=== PATIENT | female | born 1965 | race Caucasian/White ===

== ENCOUNTER → 2023-10-04 11:56 | Outpatient (BNVA) | payer SELFPAY | PROVIDERS: PCP Clinical Nurse Specialist Adult Health; Visit Provider Clinical Nurse Specialist Adult Health | DX: D50.9 Iron deficiency anemia, unspecified (principal); K62.89 Other specified diseases of anus and rectum; Z00.00 Encounter for general adult medical examination without abnormal findings | CPT/HCPCS: 80053; 83036; 85025 ==

== ENCOUNTER → 2023-10-13 10:36 | Outpatient (BNVA) | payer SELFPAY | PROVIDERS: PCP Clinical Nurse Specialist Adult Health; Visit Provider Clinical Nurse Specialist Adult Health | DX: D50.9 Iron deficiency anemia, unspecified (principal); K62.89 Other specified diseases of anus and rectum | CPT/HCPCS: 82270 ==

== ENCOUNTER 2025-10-27 17:35 | Observation (INO) | payer BC, SELFPAY ==
[2025-10-27] VITALS (9 sets, daily range): BP systolic 121–177; BP diastolic 57–135; PULSE 105–116; RESP 10–26; TEMP 36.4; O2SAT 92–100; BMI 28.8; BMI 30.3
--- NOTE | 2025-10-27 18:20 | CTR_ITS ---
PROCEDURE INFORMATION: Exam: CT Abdomen And Pelvis With Contrast Exam date and time: 10/27/2025 6:38 PM Age: 60 years old Clinical indication: Prior surgery; Surgery date: 6+ months; Surgery type: Colostomy. Csection. EMS arrival for lower gi bleed with lethargy. History of rectosigmoid carcinoma. ; Additional info: Abd pain, gi bleeding, HX of rectal cancer TECHNIQUE: Imaging protocol: Computed tomography of the abdomen and pelvis with contrast. Radiation optimization: All CT scans at this facility use at least one of these dose optimization techniques: automated exposure control; mA and/or kV adjustment per patient size (includes targeted exams where dose is matched to clinical indication); or iterative reconstruction. Contrast material: OMNI 350; Contrast volume: 80 ml; Contrast route: INTRAVENOUS (IV); COMPARISON: No relevant prior studies available. RADIATION DOSE METRICS: Total DLP (mGy-cm): 679.19 FINDINGS: Lungs: Hypoattenuating foci, possible metastases, in the right lower lobe lung parenchyma is incompletely characterized on this examination. Given history of rectosigmoid carcinoma, consider CT chest for further evaluation as clinically appropriate. Pleural spaces: Large bilateral pleural effusions. Liver: Hepatic metastases measuring up to 4.6 x 4.3 cm in the right lobe of the liver and 2.4 x 3.6 cm in the medial left lobe of the liver other smaller hypoattenuating hepatic foci which are incompletely characterized on this examination. Gallbladder and biliary ducts: Normal. No calcified stones. No ductal dilation. Pancreas: Normal. No ductal dilation. Spleen: Normal. No splenomegaly. Adrenal glands: Normal. No mass. Kidneys and ureters: Bilateral caliectasis, no hydroureter on either side. Bilateral renal cysts incompletely characterized on this examination. Stomach and bowel: Colonic mass in the patient's left lower quadrant ostomy measuring 5.2 x 3.7 cm with normal caliber of the visualized large bowel loops. Normal caliber of the small bowel loops. Appendix: No evidence of appendicitis. Intraperitoneal space: Fluid-filled mass with septations and rim calcifications measuring 11 cm AP x 6.5 cm transverse by 11.2 cm craniocaudal along the left peritoneal sidewall, possible abscess and/or metastatic deposit. Vasculature: Unremarkable. No abdominal aortic aneurysm. Lymph nodes: Scattered subcentimeter retroperitoneal lymph nodes. Urinary bladder: Unremarkable as visualized. Reproductive: Hypoattenuating uterine masses with heterogeneous echogenicity and foci of subcentimeter air within the fluid components suggestive of abscess the largest measuring 12.0 x 9.0 cm. Complex cysts in the right adnexa measures 3.3 x 5.1 cm series 9, image 53. Bones/joints: Multilevel degenerative changes of the thoracolumbar spine. No acute osseous abnormality. Soft tissues: Peroneal abscess measures 3.4 x 2.3 cm series 9, image 73 extending into the gluteal crease with indurated cutaneous tissues. Other findings: Calcifications in the pelvis. CT/CT abdomen pelvis w con* [id number] IMPRESSION: 1. Hypoattenuating foci, possible metastases, in the right lower lobe lung parenchyma is incompletely characterized on this examination. Given history of rectosigmoid carcinoma, consider CT chest for further evaluation as clinically appropriate. 2. Large bilateral pleural effusions. 3. Hepatic metastases measuring up to 4.6 x 4.3 cm in the right lobe of the liver and 2.4 x 3.6 cm in the medial left lobe of the liver other smaller hypoattenuating hepatic foci which are incompletely characterized on this examination. 4. Hypoattenuating uterine masses with heterogeneous echogenicity and foci of subcentimeter air within the fluid components suggestive of abscess the largest measuring 12.0 x 9.0 cm. 5. Fluid-filled mass with septations and rim calcifications measuring 11 cm AP x 6.5 cm transverse by 11.2 cm craniocaudal along the left peritoneal sidewall, possible abscess and/or metastatic deposit. 6. Colonic mass in the patient's left lower quadrant ostomy measuring 5.2 x 3.7 cm with normal caliber of the visualized large bowel loops. 7. Peroneal abscess measures 3.4 x 2.3 cm series 9, image 73 extending into the gluteal crease with indurated cutaneous tissues. COMMENTS: Consistent with the [employer]'s Incidental Findings Committee white paper (J Am Elieser Radiol 2018): Any incidental renal lesion less than 1 cm or classified as too small to characterize, or any incidental cystic renal lesion characterized as simple-appearing, is likely benign. No follow-up imaging is recommended for these lesions per consensus recommendations based on imaging criteria.
[2025-10-27 18:29] LABS: Hematocrit 27.4 % (36-47); Hemoglobin 7.20 g/dL (11.27-16.99); Mean Corpuscular HGB Conc 26.3 g/dL (30-55); Mean Corpuscular Hemoglobin 21.8 pg (27-33); Mean Corpuscular Volume 83.0 fl (85-98); Nucleated Red Blood Cells % 0.4 %; Platelet Count 273 10^3/cmm (157-399); Red Blood Count 3.30 10^6/uL (3.85-5.65); White Blood Count 25.89 10^3/uL (3.29-11.43)
[2025-10-27] MEDS: iohexol 350 mg/mL 500 mL Btl (per mL) IV (18:46)
[2025-10-27 18:49] LABS: Alanine Aminotransferase < 5 U/L (0-33); Albumin Level 3.1 g/dL (3.5-5.2); Alkaline Phosphatase 115 U/L (35-105); Anion Gap 12.6 (5-19); Aspartate Amino Transferase 18 U/L (0-32); Blood Urea Nitrogen 26 mg/dL (8-23); Calcium 8.8 mg/dL (8.5-10.5); Carbon Dioxide 32 mmol/L (22-29); Chloride 99 mmol/L (98-107); Globulin 3.6 g/dL (1.3-4.6); Glucose 176 mg/dL (65-115); Osmolality Calculated 295 mOsm/kg (285-295); Potassium 5.6 mmol/L (3.5-5.1); Sodium 138 mmol/L (136-145); Total Protein 6.7 g/dL (6.6-8.7)
--- NOTE | 2025-10-27 18:53 | W.ED.GIBLEED ---
HPI - GI Bleed General: Chief complaint: GI Bleed Stated complaint: lethargy Time Seen by Provider: 10/27/25 17:41 History of Present Illness: Patient is a 60-year-old female with end-stage colon cancer who presents from home with GI bleeding. She is currently on hospice care. Patient reports abdominal pain but denies vomiting. Denies fever. Appears quite ill. History is otherwise difficult to obtain. Related Data Home Medications ?Medication ?Instructions ?Recorded ?Confirmed gabapentin 300 mg capsule 300 mg PO TID 01/13/24 05/03/25 pantoprazole 40 mg tablet,delayed 40 mg PO QDAY 05/03/25 05/03/25 release Previous Rx's ?Medication ?Instructions ?Recorded cholecalciferol (vitamin D3) 75 75 mcg PO BID #30 tabs 01/04/24 mcg (3,000 unit) tablet ferrous sulfate 325 mg (65 mg 325 mg PO DAILY #30 tabs 01/13/24 iron) tablet metformin 500 mg tablet 500 mg PO BIDWMEAL #60 tabs 05/03/25 propranolol 10 mg tablet 10 mg PO BID #60 tabs 05/03/25 Allergies Allergy/AdvReac Type Severity Reaction Status Date / Time Penicillins Allergy Unknown ADR-mild Verified 05/03/25 09:52 PFSH ED PFSH: Medical History Vitamin D deficiency Carcinoma of rectosigmoid (colon) Type 2 diabetes mellitus without complications Iron deficiency anemia Hyperglycemia Hx of bronchitis Uterine fibroid Surgical History Colostomy in place Nov 2023 Hx of section 1 child only Family History Denies family history of Colon cancer Clotting disorder Anesthesia complication Bleeding disorder Social History Smoking and tobacco/nicotine status: never used tobacco/nicotine Alcohol intake: current Alcohol intake frequency: holidays/special occasions only Substance/Drug Use: never Current occupation: work at [employer] Physical Exam Const: EXAM LIMITATIONS: altered mental status GENERAL APPEARANCE: cooperative, in distress, ill appearing and frail appearing ORIENTATION/CONSCIOUSNESS: Yes awake, Yes oriented to person and Yes oriented to place; not oriented to time HENMT: COMMON NORMALS: normocephalic, atraumatic and Normal external nose present HEAD & SCALP: normocephalic and atraumatic FACE & SINUS: face symmetric NOSE: Normal external nose present Eye: COMMON NORMALS: Equal, round and reactive pupils present and EOMs intact bilaterally CONJUNCTIVA: Yes conjunctival abnormal positive bilateral pallor PUPIL: Yes Equal, round and reactive pupils present Chest: CHEST: Yes Symmetrical chest wall rise Resp: COMMON NORMALS: clear to auscultation bilaterally EFFORT & INSPECTION: Yes decreased respiratory effort and Yes labored AUSCULTATION: clear to auscultation bilaterally Cardio: COMMON NORMALS: regular rhythm RATE: tachycardic RHYTHM: regular rhythm GI: PALPATION: Yes Firmness to palpation present (GI), Yes Tenderness to palpation present (GI) and Yes Guarding due to palpation present (GI) Neuro: SENSORIUM/ORIENTATION: Yes oriented to person, Yes oriented to place and No oriented to time Course Vital Signs: Vital signs: Vital Signs Temperature 97.5 F L 10/27/25 17:44 Pulse Rate 105 H 10/27/25 21:48 Respiratory Rate 17 10/27/25 22:25 Blood Pressure 127/68 10/27/25 21:48 Pulse Oximetry 98 10/27/25 21:48 Oxygen Delivery Me thod Nasal Cannula 10/27/25 22:16 Oxygen Flow Rate 5 10/27/25 18:38 MDM - GI Bleed Medical Decision Making Patient is tachycardic. She is hypertensive. She is significantly hypoxic, on 5 L of oxygen now. Saturations are 93 to 95%. Her hemoglobin is 7.2. White blood cell count is 26. Rectal exam reveals significant erosion into the vaginal wall. Bright red blood is leaking from what appears to be an anterior position, in the vagina. Colostomy bag is filled with stool, and does not appear bloody. Spoke with the patient and her daughter. She is a hospice patient. They want no drastic measures. CT reveals multiple metastases. Fluid-filled masses in the uterus, with likely abscess measuring 12 x 9 cm. Abscess in uterine wall, likely causing vaginal bleeding. Colonic mass in the left lower quadrant measuring 5.2 x 3-1/2 cm. No bowel obstruction. Peritoneal abscess is present also that is significant in size. Prognosis is dire in this patient. Patient and daughter are aware. They wish for admission, mainly for palliative care. Spoke with hospitalist. He is going to come to see the patient. After hospitalist discussion with the patient and the patient's daughter. She will be admitted for comfort measures. Lab Data 10/27/25 18:19 10/27/25 18:19 Radiology Impressions Abdomen/Pelvis CT 10/27/25 18:20 IMPRESSION: 1. Hypoattenuating foci, possible metastases, in the right lower lobe lung parenchyma is incompletely characterized on this examination. Given history of rectosigmoid carcinoma, consider CT chest for further evaluation as clinically appropriate. 2. Large bilateral pleural effusions. 3. Hepatic metastases measuring up to 4.6 x 4.3 cm in the right lobe of the liver and 2.4 x 3.6 cm in the medial left lobe of the liver other smaller hypoattenuating hepatic foci which are incompletely characterized on this examination. 4. Hypoattenuating uterine masses with heterogeneous echogenicity and foci of subcentimeter air within the fluid components suggestive of abscess the largest measuring 12.0 x 9.0 cm. 5. Fluid-filled mass with septations and rim calcifications measuring 11 cm AP x 6.5 cm transverse by 11.2 cm craniocaudal along the left peritoneal sidewall, possible abscess and/or metastatic deposit. 6. Colonic mass in the patient's left lower quadrant ostomy measuring 5.2 x 3.7 cm with normal caliber of the visualized large bowel loops. 7. Peroneal abscess measures 3.4 x 2.3 cm series 9, image 73 extending into the gluteal crease with indurated cutaneous tissues. COMMENTS: Consistent with the [employer]'s Incidental Findings Committee white paper (J Am Elieser Radiol 2018): Any incidental renal lesion less than 1 cm or classified as too small to characterize, or any incidental cystic renal lesion characterized as simple-appearing, is likely benign. No follow-up imaging is recommended for these lesions per consensus recommendations based on imaging criteria. Laboratory Results WBC 25.89 10^3/uL (3.29-11.43) H 10/27/25 18:19 RBC 3.30 10^6/uL (3.85-5.65) L 10/27/25 18:19 Hgb 7.20 g/dL (11.27-16.99) L 10/27/25 18:19 Hct 27.4 % (36-47) L 10/27/25 18:19 MCV 83.0 fl (85-98) L 10/27/25 18:19 MCH 21.8 pg (27-33) L 10/27/25 18:19 MCHC 26.3 g/dL (30-55) L 10/27/25 18:19 RDW 19.9 % (12.1-15.1) H 10/27/25 18:19 Plt Count 273 10^3/cmm (157-399) 10/27/25 18:19 MPV 10.6 fL (7.4-10.4) H 10/27/25 18:19 Neut % (Auto) 87.2 % 10/27/25 18:19 Lymph % (Auto) 5.0 % 10/27/25 18:19 [place] % (Auto) 5.0 % 10/27/25 18:19 Eos % (Auto) 0.1 % 10/27/25 18:19 Baso % (Auto) 0.2 % 10/27/25 18:19 Neut # (Auto) 22.58 10^3/uL (1.8-7.7) H 10/27/25 18:19 Lymph # (Auto) 1.3 10^3/uL (0.8-4.8) 10/27/25 18:19 [place] # (Auto) 1.3 10^3/uL (0.2-0.9) H 10/27/25 18:19 Eos # (Auto) 0.0 10^3/uL (0.0-0.8) 10/27/25 18:19 Baso # (Auto) 0.0 10^3/uL (0.0-0.1) 10/27/25 18:19 Nucleated RBC % (auto) 0.4 % 10/27/25 18:19 Nucleated RBCs # 0.1 /100WBC 10/27/25 18:19 PT 14.50 SECONDS (12.1-14.9) 10/27/25 18:19 INR 1.06 (0.8-1.2) 10/27/25 18:19 Sodium 138 mmol/L (136-145) 10/27/25 18:19 Potassium 5.6 mmol/L (3.5-5.1) H 10/27/25 18:19 Chloride 99 mmol/L (98-107) 10/27/25 18:19 Carbon Dioxide 32 mmol/L (22-29) H 10/27/25 18:19 Anion Gap 12.6 (5-19) 10/27/25 18:19 BUN 26 mg/dL (8-23) H 10/27/25 18:19 Creatinine 0.5 mg/dL (0.5-0.9) 10/27/25 18:19 GFR Calculation 125.0 mL/min (90-130) 10/27/25 18:19 Glucose 176 mg/dL (65-115) H 10/27/25 18:19 Calculated Osmolality 295 mOsm/kg (285-295) 10/27/25 18:19 Lactic Acid 2.8 mmol/L (0.5-2.2) H 10/27/25 18:19 Calcium 8.8 mg/dL (8.5-10.5) 10/27/25 18:19 Total Bilirubin 0.8 mg/dL (0.15-1.2) 10/27/25 18:19 AST 18 U/L (0-32) 10/27/25 18:19 ALT < 5 U/L (0-33) 10/27/25 18:19 Alkaline Phosphatase 115 U/L (35-105) H 10/27/25 18:19 C-Reactive Protein 60.8 mg/L (0.0-4.9) H 10/27/25 18:19 Total Protein 6.7 g/dL (6.6-8.7) 10/27/25 18:19 Albumin 3.1 g/dL (3.5-5.2) L 10/27/25 18:19 Globulin 3.6 g/dL (1.3-4.6) 10/27/25 18:19 Urine Color [place] (Yellow) A 10/27/25 19:23 Urine Appearance Clear (CLEAR) 10/27/25 19:23 Urine pH 5.5 (5-7) 10/27/25 19:23 Ur Specific [place] 1.022 (1.005-1.030) 10/27/25 19:23 Urine Protein 1+ (Negative) A 10/27/25 19: Urine Glucose (UA) Negative (Normal) 12/06/25 19:23 Urine Ketones Negative (Negative) 10/27/25 19:23 Urine Blood Negative (Negative) 10/27/25 19:23 Urine Nitrate Positive (Negative) A 10/27/25 19:23 Urine Bilirubin 1+ (Negative) H 10/27/25 19:23 Urine Urobilinogen 1.0 mg/dL (Negative) 10/27/25 19:23 Ur Leukocyte Esterase 1+ (Negative) A 10/27/25 19:23 Urine RBC 3-5 /hpf (0-2) 10/27/25 19:23 Urine WBC 6-10 /hpf (0-5) 10/27/25 19:23 Ur Squamous Epith Cells 0-5 /hpf (0-5) 10/27/25 19:23 Amorphous Sediment Not Reportable 10/27/25 19:23 Urine Bacteria None seen /hpf (NONE) 10/27/25 19:23 Hyaline Casts 1.21 /lpf 10/27/25 19:23 Blood Type O Negative 10/27/25 18:19 Rho(D) Type Rh negative 10/27/25 18:19 Antibody Screen Negative 10/27/25 18:19 All radiology interpretation(s) finalized by discharge Discharge Plan Discharge Patient Disposition: Admitted As Inpatient Admit Provider: Jimbo Murray Clinical Impression: Carcinoma of rectosigmoid (colon), Sepsis Condition: Serious Coding Level of Care Code ED [employer] for Marisel Huynh
[2025-10-27 19:03] LABS: INR 1.06 (0.8-1.2); Prothrombin Time 14.50 SECONDS (12.1-14.9)
[2025-10-27 19:11] LABS: Lactic Sepsis W/Reflex 2.8 mmol/L (0.5-2.2)
[2025-10-27 19:32] LABS: Reflex Lactate Order REFLEX LACTIC ORDERD
[2025-10-27 19:33] LABS: Glucose Urine UA Negative (Normal); Nitrate Urine Positive (Negative); Specific Gravity, Urine 1.022 (1.005-1.030)
[2025-10-27 19:38] LABS: Add Urine Microscopic? YES
[2025-10-27] MEDS: levofloxacin-dextrose 5 % 750 MG/150 ML PREMIX 100 MG IV (19:56)
--- NOTE | 2025-10-27 21:53 | PM.HP ---
Providers/Chief Complaint Admitting Physician: Jimbo Murray MD Primary Care Provider: Medhat Newton Chief Complaint: lethargy History of Present Illness Candida Malik is a 60 year old female comes in with daughter Arabella at bedside. Patient has been lethargic and unable to stand despite assistance from and Arabella. Patient has been on hospice for the last 3 months and not following with physician but condition worsened and she is unable to be cared for at home. Patient has been complained of abdominal pain and also has had continual bleeding from vagina. Patient has had tachycardia altered mental status and weakness. She has not been febrile. She was treated with IV fluids and Levaquin in the emergency department and after discussion with daughter it is confirmed that aggressive measures or change from comfort status is not desired. Patient was diagnosed with rectal cancer November 2023 and had radiation and chemotherapy following port placement in December or January 2024. This included 8 weeks of radiation therapy at [facility] in [place].Patient also has diabetes and vitamin D deficiency. Patient lives in a 25 to 30 foot travel trailer for the last 5 years. She was to a [place] businessman from [facility] when she had Arabella who is present at bedside. She is remarried to not currently present but is aware of patient's diagnosis and plan for comfort measures Review of Systems Narrative: Unable to obtain from patient. Daughter denies the patient has been vomiting. She has been bleeding from the vagina and also complaining of lower abdominal pain. She has not had a bowel movement in 2 days. Patient has not been eating or drinking adequately for 2 days or more Medications/Allergies Home Medications ?Medication ?Instructions ?Recorded ?Confirmed ?Last Taken ?Type cholecalciferol (vitamin D3) 75 75 mcg PO BID #30 tabs 01/04/24 05/03/25 Unknown Rx mcg (3,000 unit) tablet ferrous sulfate 325 mg (65 mg 325 mg PO DAILY #30 tabs 01/13/24 05/03/25 Unknown Rx iron) tablet gabapentin 300 mg capsule 300 mg PO TID 01/13/24 05/03/25 Unknown History metformin 500 mg tablet 500 mg PO BIDWMEAL #60 tabs 05/03/25 05/03/25 Unknown Rx pantoprazole 40 mg tablet,delayed 40 mg PO QDAY 05/03/25 05/03/25 Unknown History release propranolol 10 mg tablet 10 mg PO BID #60 tabs 05/03/25 05/03/25 Unknown Rx Allergies Allergy/AdvReac Type Severity Reaction Status Date / Time Penicillins Allergy Unknown ADR-mild Verified 05/03/25 09:52 PFSH Acute PFSH: Medical History (Updated 10/27/25 @ 22:01 by Jimbo Murray MD) Hx of colon cancer, stage IV Vitamin D deficiency Carcinoma of rectosigmoid (colon) Type 2 diabetes mellitus without complications Iron deficiency anemia Hyperglycemia Hx of bronchitis Uterine fibroid Surgical History Colostomy in place Nov 2023 Hx of section 1 child only Family History Denies family history of Colon cancer Clotting disorder Anesthesia complication Bleeding disorder Social History Smoking and tobacco/nicotine status: never used tobacco/nicotine Alcohol intake: current Alcohol intake frequency: holidays/special occasions only Substance/Drug Use: never Current occupation: work at [employer] Vitals/I&O/Wt Last Vital Signs Temp 97.5 F L 10/27/25 17:44 Pulse 105 H 10/27/25 21:48 Resp 26 H 10/27/25 21:48 BP 127/68 10/27/25 21:48 Pulse Ox 98 10/27/25 21:48 O2 Del Method Nasal Cannula 10/27/25 18:38 O2 Flow Rate 5 10/27/25 18:38 10/27/25 10/27/25 10/27/25 06:59 14:59 22:59 Intake Total 1572 / 1572 Balance 1572 / 1572 Weight last 48 hrs Weight 73.936 kg Physical Exam Narrative: General Well-developed chronically ill-appearing female appears older than her stated age CV regular tachycardic rhythm Lungs clear to auscultation bilaterally Abdomen diminished bowel tones soft multiple large fist and grapefruit sized abdominal masses mildly tender no rebound tenderness Calves 1+ to 2 bilateral edema minimally tender no erythema Dorsal pedal pulses 1+ bilaterally Pupils 3 mm and equal Data 10/27/25 18:19 10/27/25 18:19 Micro: Microbiology 10/27/25 20:31 Blood Culture - Preliminary Blood SPECIMEN COLLECTED 10/27/25 20:12 Blood Culture - Preliminary Blood SPECIMEN COLLECTED A&P Assessment and plan 1. Carcinoma of rectosigmoid (colon): This is with erosion into the vagina wall as well as multiple abscesses. Patient is opted for hospice and daughter is counseled and we agree that the patient should have full comfort care. Plans were for her to be placed in [facility] for hospice due to inability to provide care at home the patient is coming in hypotensive requiring IV pain meds and care not able to be provided no travel trailer 2. Hx of colon cancer, stage IV: Patient has stage IV cancer diagnosed at the time of her rectosigmoid adenocarcinoma diagnosis November 2023 3. Abdominal abscess: Multiple abscesses that would require drainage and IV antibiotics and would not heal well. We have elected to proceed with comfort care 4. Sepsis: Comfort care. Discontinue IV fluid boluses and antibiotics 5. Iron deficiency anemia: Discontinue lab draw for blood type. No further transfusions Plan: Patient admitted for full comfort care with placement in nursing facility to follow if patient does not pass away sooner with her sepsis and comfort care PDMP PDMP Reviewed: Not Reviewed Attestations Medical Necessity Statement*: Patient admitted to hospital for comfort care and is expected require 2 midnights Coding Level of Care Code 89078 Diagnoses Carcinoma of rectosigmoid (colon) C19 Hx of colon cancer, stage IV Z85.038 Abdominal abscess Sepsis A41.9 Iron deficiency anemia D50.9 Time Spent (min) 55
[2025-10-27] MEDS: morphine 4 mg/mL SDV 1 mL IVP (22:25)
[2025-10-27] MEDS: LORazepam 2 mg/mL INJ 1 mL IVP (22:25)
[2025-10-28] MEDS: morphine 4 mg/mL SDV 1 mL IVP (00:22)
[2025-10-28] MEDS: LORazepam 2 mg/mL INJ 1 mL IVP (00:22)
[2025-10-28] MEDS: atropine 1% op soln 2 mL Btl 3 DROP SUBLINGUAL (00:25)
--- NOTE | 2025-10-28 01:05 | PC.NURSE ---
Patient at 0100, patient belongings given to daughter at bedside
--- NOTE | 2025-10-28 01:37 | PC.NURSE ---
pt is released from [facility].
--- NOTE | 2025-10-28 01:38 | PC.NURSE ---
Patient without respirations and pulse at 0100, verified by Brian Arshad LPN and Mick Astorga RN at bedside. Patient daughter at bedside at this time. Daughter to notify patient's . Nursing staff offered call to jewelry casting model maker apprentice, daughter refuses at this time. supervisor display fabrication, Lazara, notified of patient at 0102. Dr. Murray notified of patient by Brian Arshad LPN at approximately 0105. [facility] notified of patient at 0105 by this nurse. Elif [facility] coordinator released patient from [facility] services at 0109 but to hold for [facility]. home of choice is [facility] with body transfer paper signed by patient daughter at 0115. This nurse spoke with Ariella [facility] coordinator at 0135 and [facility] released patient from their services. [facility] notified of patient at 0140. Post mortem care provided by Brian Arshad LPN and Tom English CNA at 0140. [facility] home notified by this nurse at 0145 for patient transfer. Patient daughter refused patient belongings (socks) upon leaving. Awaiting [facility] home services for patient transfer.
--- NOTE | 2025-10-28 03:01 | PC.NURSE ---
[facility] transported patient remains at 0235
--- NOTE | 2025-10-28 05:33 | PM.DDS ---
Discharge Providers DDS Date of Admission: 10/27/25 20:42 Date Summary Completed: 10/28/25 Attending Provider at Admission: Jimbo Murray MD Time of : 01:00 Attending Provider at Discharge: Jimbo Murray MD Primary Care Provider: Medhat Newton DS Diagnoses Hospital Diagnoses 1. Carcinoma of rectosigmoid (colon): Details from hospital stay: Admitted to comfort care and 2. Hx of colon cancer, stage IV: Details from hospital stay: Was switched to hospice 3 months prior to this admission 3. Abdominal abscess: Details from hospital stay: Found to have multiple abdominal abscesses related to abdominal metastases which were treated with comfort care 4. Sepsis: Details from hospital stay: As above 5. Iron deficiency anemia, unspecified iron deficiency anemia type: Details from hospital stay: As above Qualifiers: Iron deficiency anemia type: unspecified iron deficiency Qualified Code(s): D50.9 - Iron deficiency anemia, unspecified Reason for Visit Reason for Visit lethargy Summary Date and Time of Date of : 10/28/25 Time of : 01:00 Summary Summary: Patient was admitted to the hospital and treated with comfort care. She passed at 0100 on 10/28/2025. Additional Data Advance directives?: No Discharge Plan Discharge Patient Disposition: Condition: Serious DS Attestations Time Spent in /Discharge Care*: less than 30 min Quality - AMI: AMI present?: No Quality - Stroke: CVA present?: No Symptom Onset Unknown: No Quality - VTE: VTE present?: No Deep Vein Thrombosis/Pulmonary Embolism Present on Admission: No Coding Level of Care Code 41796 Diagnoses Carcinoma of rectosigmoid (colon) C19 Hx of colon cancer, stage IV Z85.038 Abdominal abscess Sepsis A41.9 Iron deficiency anemia, unspecified iron deficiency anemia type D50.9 Iron deficiency anemia type: unspecified iron deficiency Time Spent (min) 15
[2025-10-29 22:43] LABS: Bacillus cereus group Not Detected (NOT DETECT); Bacillus subtillis group Not Detected (NOT DETECT); Corynebacterium Not Detected (NOT DETECT); Cutibacterium acnes (P.acnes) Not Detected (NOT DETECT); Enterococcus faecalis Not Detected (NOT DETECT); Enterococcus faecium Not Detected (NOT DETECT); Listeria Not Detected (NOT DETECT); Micrococcus Not Detected (NOT DETECT); Pan Candida Not Detected (NOT DETECT); Pan Gram-Negative Not Detected (NOT DETECT); Staphylococcus epidermidis Not Detected (NOT DETECT); Staphylococcus lugdunensis Not Detected (NOT DETECT); Staphylococcus species Not Detected (NOT DETECT); Streptococcus anginosus group Not Detected (NOT DETECT); Streptococcus pyogenes Not Detected (NOT DETECT); Streptococcus species Not Detected (NOT DETECT)
== END 2025-10-28 01:00 | disposition expired ==
LOC: ER 20:47 → MEDSURG 21:13
PROVIDERS: Emergency Medicine; Admitting Provider Internal Medicine; Emergency Provider Emergency Medicine; PCP Clinical Nurse Specialist Adult Health; Visit Provider Internal Medicine
DX: A41.9 Sepsis, unspecified organism (principal); C19 Malignant neoplasm of rectosigmoid junction; Z85.038 Personal history of other malignant neoplasm of large intestine; D50.9 Iron deficiency anemia, unspecified; K21.9 Gastro-esophageal reflux disease without esophagitis; Z79.84 Long term (current) use of oral hypoglycemic drugs; E11.65 Type 2 diabetes mellitus with hyperglycemia
CPT/HCPCS: 36415; 74177; 80053; 81001; 83605; 85025; 85610; 86140; 86850; 86900; 87040; 96365; 96375; 99285; G0378; J1956; J2060; J2270; J7120; J9999